=== PATIENT | female | born 1960 | race Caucasian/White ===

== ENCOUNTER 2023-01-21 08:43 | Day surgery (SDC) | payer BC ==
[2023-01-21] MEDS ORDERED: LIDOCAINE HCL 2% 100 MG/5 ML IJ ONE (08:44)
[2023-01-21] MEDS ORDERED: Depo-Medrol 40 MG/ML IM ONE (08:44)
[2023-01-21] MEDS ORDERED: DIPRIVAN 200 MG/20 ML IV ONE (10:14)
[2023-01-21] MEDS ORDERED: Lactated Ringers 1,000 ML IV ONE (14:01)
== END 2023-01-21 10:50 | disposition home or self-care (01) ==
LOC: SDC-PAIN 08:43
PROVIDERS: ATTEND Psychiatry & Neurology Pain Medicine
DX: M47.816 Spondylosis without myelopathy or radiculopathy, lumbar region (principal); E11.9 Type 2 diabetes mellitus without complications; Z79.899 Other long term (current) drug therapy
CPT/HCPCS: 64493; 64494; 82947; J1030; J2704